=== PATIENT | female | born 1960 | race Caucasian/White ===

== ENCOUNTER 2022-09-24 10:27 | Outpatient (CLI) | payer BC, SELFPAY | END 2022-09-24 10:28 | disposition home or self-care (01) | PROVIDERS: PCP Family Medicine; Visit Provider Internal Medicine | DX: Z12.11 Encounter for screening for malignant neoplasm of colon (principal); K57.30 Diverticulosis of large intestine without perforation or abscess without bleeding; Z86.010 Personal history of colon polyps | CPT/HCPCS: 45378; J2250; J3010 ==

== ENCOUNTER 2024-01-17 21:58 | Emergency (ER) | payer BC, SELFPAY ==
[2024-01-17 22:02] VITALS: BP 177/75; PULSE 68; RESP 18; TEMP 36.4; O2SAT 97; BMI 30.7
--- NOTE | 2024-01-17 22:39 | ED_ITS ---
HPI - General Adult General Date Seen: 01/17/24 Chief complaint: Epistaxis/Nosebleed Stated complaint: nose bleed Time Seen by Provider: 01/17/24 22:39 History of Present Illness HPI narrative: This is a 63-year-old female presenting to the ER tonight for epistaxis. She is generally healthy with no known history of hypertension. No history of strokes, coronary disease, or other long-term medical conditions. She has been sick since yesterday with nasal congestion, cough and URI symptoms. She believe she picked up this cold from her mother who came to visit with a cold. This evening she was sneezing and started having some nose bleeding, mostly from her right nostril, at around 5:00 p.m.. She was able to control this nose bleed by dabbing at her nose with some Kleenex. She was picking up a heavy bucket of water at around 8:00 p.m. and started having nose bleed. During the 2nd bleeding blood was coming mostly from the right nostril but also from the left. She applied pressure with a nasal clamp and came to the ER. No previous history of nose bleeding. She also became very nervous. She started having a central headache. She measured her blood pressure knows elevated at about 177/100. She does not take any anticoagulants. No no nasal trauma. No other unusual bleeding or bruising. She does have a cough today that is productive of some dark yellow/greenish sputum. She wonders if this might be drainage from her nose. Now that she is here in the ER she has a nasal clamp in place and is no longer bleeding. Related Data Previous Rx's Medication Instructions Recorded peg 3350-electrolytes 236 240 ml PO Q10M #4,000 mL 08/02/22 gram-22.74 gram-6.74 gram-5.86 gram solution (Golytely) Allergies Allergy/AdvReac Type Severity Reaction Status Date / Time No Known Drug Allergies [facility] Ver[facility] 09[facility]24[facility]22 13:[facility] Social History Smoking Status: Never smoker Do you use any of these nicotine containing products: None Second hand tobacco smoke exposure: No How often do you have a drink containing alcohol: never AUDIT-C Alcohol total score: 0 Non-prescribed substance use: denies use service: No Exam Narrative: Exam Narrative: Constitutional: Appears well-developed and well-nourished. Alert. Conversant. Non toxic. HENT: Head: Atraumatic. Nose: External Nose normal. Dry blood in right naris. No active bleeding. After Afrin reinspected. There is a very small erythematous spot on the nasal septum about 1 cm in from the nares that may have been a recent site of bleeding. There is no active bleeding. Good hemostasis at this time. No other visible sites of epistaxis. Mouth/Throat: Oral mucosa is clear and moist. no trismus. Pharynx normal. Tonsils symmetric. No tonsillar enlargement, erythema, or exudate. Eyes: Conjunctivae normal. EOM normal. Pupils equal, round, and reactive to light. No scleral icterus. Neck: Normal range of motion. Neck supple. No tracheal deviation present. Cardiovascular: Normal rate, regular rhythm. No gallop. No friction rub. No murmur heard. Symmetric radial artery pulses Pulmonary/Chest: Effort normal. No stridor. No respiratory distress. No wheezes. No rales. No rhonchi . Musculoskeletal: RUE: Normal range of motion. No tenderness. No deformity LUE: Normal range of motion. No tenderness. No deformity RLE: Normal range of motion. No edema. No tenderness. No deformity LLE: Normal range of motion. No edema. No tenderness. No deformity Lymph: No cervical adenopathy. Neurological: Mental status normal. Attention normal. Alert and oriented x3. GCS 15. Memory normal. Speech fluent. Cognition normal. Cranial Nerves intact II-XII except I did not formally test gag or visual acuity. EOMI. Palate elevates symmetrically and tongue protrudes in the midline. Strength: 5/5 trapezius on the right and left 5/5 deltoid on the right and left 5/5 biceps on the right and left 5/5 triceps on the right and left 5/5 dictaphone operator on the right and left 5/5 thumb opposition on the right and le ft 5/5 finger abduction on the right and le ft 5/5 hip flexors (L3) on the right and le ft 5/5 quadriceps (L4) on the right and lef t 5/5 tibialis anterior on the right and l eft 5/5 EHL (L5) on the right and left 5/5 gastrocnemius (S1) on the right and left 5/5 hamstring on the right and left Sensation intact to light touch in both upper extremities (C4-T1) Sensation intact to light touch in Both lower extremities (L4-S1). Finger to nose and coordination normal. Gait normal. Skin: Skin is warm and dry. No rash noted. No pallor. Normal capillary refill. Psychiatric: Normal mood. Normal affect. Const: Vital Signs, click to edit/add: Vital Signs - 24 hr 01/17/24 22:02 01/18/24 00:12 Temperature 97.6 F Pulse Rate [Right Pulse Oximeter] 68 Respiratory Rate 18 Blood Pressure [Ri ght Upper Arm] 177/75 H 134/73 Pulse Oximetry 97 Oxygen Delivery Me thod Room Air Course Course ED Course: Recheck-no recurrent bleeding. Reevaluation(s) Reevaluation #1: Recheck-feeling much better after Afrin. Says she is able to breathe through her nose now. Headache improved after Tylenol. Repeat blood pressure down to 134/72. Feeling much better. Vital Signs Vital signs: Initial Vital Signs Temperature 97.6 F 01/17/24 22:02 Temperature Source Temporal Artery Scan 01/17/24 22:02 Pulse Rate 68 01/17/24 22:02 Pulse Rhythm Regular 01/17/24 22:02 Respiratory Rate 18 01/17/24 22:02 Blood Pressure 177/75 H 01/17/24 22:02 Blood Pressure Mean 109 H 01/17/24 22:02 Blood Pressure Position Sitting 01/17/24 22:02 Pulse Oximetry 97 01/17/24 22:02 Oxygen Delivery Method Room Air 01/17/24 22:02 Vital Signs Temperature 97.6 F 01/17/24 22:02 Pulse Rate 68 01/17/24 22:02 Respiratory Rate 18 01/17/24 22:02 Blood Pressure 177/75 H 01/17/24 22:02 Pulse Oximetry 97 01/17/24 22:02 Oxygen Delivery Method Room Air 01/17/24 22:02 Temperature 97.6 F 01/17/24 22:02 Pulse Rate 68 01/17/24 22:02 Respiratory Rate 18 01/17/24 22:02 Blood Pressure 134/73 01/18/24 00:12 Pulse Oximetry 97 01/17/24 22:02 Oxygen Delivery Method Room Air 01/17/24 22:02 Medications Administered Medications: Discontinued Medications Generic Name Dose Route Start Last Admin Trade Name Uliq PRN Reason Stop Dose Admin Acetaminophen 1,000 mg 01/17/24 22:56 01/17/24 23:09 Acetaminophen 500 Mg Tablet PO 01/17/24 22:57 1,000 mg ONCE ONE Administration Lidocaine HCl 6 ml 01/17/24 22:56 01/18/24 00:24 Lidocaine Hcl 2 % Jelly (Top) Sterile TOPICAL 01/17/24 22:57 Not Given ONCE ONE Lidocaine/Epinephrine 5 ml 01/17/24 22:56 01/18/24 00:24 Lidocaine 1%-Epi 1:100,000 20 Ml INFILTRATI 01/17/24 22:57 Not Given ONCE ONE Oxymetazoline HCl 1 spray 01/17/24 22:56 01/17/24 23:02 Oxymetazoline 0.05% Nasal [place] NOSTRIL-B 1 spray BID PRN Administration Silver Nitrate/Potassium Nitrate 1 each 01/17/24 22:56 01/18/24 00:24 Silver Nitrate Applicator 1 Each Stick..Ea. TOPICAL 01/17/24 22:57 Not Given ONCE ONE Medical Decision Making MDM Narrative Medical decision making narrative: This is a pleasant 63-year-old female presenting to the ER today with epistaxis from her right nose that began this evening as well a nasal congestion and cough that began yesterday as well as headache. She also noted elevated blood pressure readings at home tonight. With the nasal congestion and cough, consider likely viral URI. Nasopharyngeal PCR is negative for coronavirus, influenza, RSV. There is no signs at this point of serious bacterial infection such as OM, RPA, epiglottitis, SAUSAGE [employer], strep pharyngitis, pneumonia, sinusitis, meningitis, bacteremia, serious bacterial infection. Given clear lungs, fever curve, no hypoxia and no respiratory dis tress I do not feel a CXR is indicated at this point as the probability of bacterial pneumonia is very unlikely. Notably after we administered Afrin for the patient's nasal congestion she had significant improvement in her cough, suggesting that of large amount of the cough is probably driven by significant postnasal drip. There are no gastrointestinal symptoms at this point and no signs of dehydration. In terms of her epistaxis this was controlled by direct pressure with a nasal clamp. She is not anticoagulated or known to be coagulopathic. Hemodynamics are stable and, in fact hypertensive. At this point I do not think she needs to have hemoglobin check or to be admitted for hemoglobin monitoring. Fortunately we were able to achieve and maintain hemostasis with direct pressure. Therefore at this time would hold off on any cauterization or nasal packing. Discussed care for epistaxis at home, steps to take if she rebleeds, and return precautions. She was also very worried about her elevated blood pressure reading. She was worried she might have a stroke from her high blood pressure. Neuro exam shows no evidence for any active stroke at this time. Blood pressure actually normalized after treatment here in the ER suggesting the blood pressure was probably secondary to the stress and anxiety of the nose bleed and the other illness. At this point in only she needs initiation of antihypertensives. Close followup with primary care physician is indicated. Return to ED for recurrent nose bleed uncontrolled by direct pressure at home, fever , worsening cough or trouble breathing, confusion, headache, or other worsening. Lab Data Labs: Lab Results 01/17/24 Range/Units 23:02 SARS-CoV-2 (PCR) Negative SARS-CoV-2 (Negative) Influenza Type A (PCR) Negative PCR FLU A (Negative) Influenza Type B (PCR) Negative PCR FLU B (Negative) RSV (PCR) Negative PCR RSV (Negative) Discharge Plan Discharge Clinical Impression: Epistaxis, URI (upper respiratory infection) Patient Disposition: Home, Self-Care Condition: Stable Instructions: Nosebleed (ED), Upper Respiratory Infection (ED) Additional Instructions: As we discussed, if you have more episodes of nose bleeding, try to apply direct pressure for 10 minutes. If you have bleeding uncontrolled after that, come back to the ER right away to be rechecked. If you have any worsening trouble with your cough, trouble breathing, high fever, or any other problems, come back to the ER to be rechecked. Prescriptions: No Action peg 3350-electrolytes [Golytely] 236-22.74-6.74 -5.86 gram recon soln 240 ml PO Q10M Qty: 4000 0RF Rx Instructions: until fecal effluent is clear Follow Up/Referrals: Kiley Miramontes MD [Primary Care Provider] - Stand Alone Forms: [employer] Info Instructions
[2024-01-17] MEDS: OXYMETAZOLINE 0.05% NASAL SPRAY 1 SPRAY NOSTRIL-B (23:02)
[2024-01-17] MEDS: ACETAMINOPHEN 500 MG TABLET 1000 MG PO (23:09)
[2024-01-17 23:52] LABS: PCR FLU A Negative PCR FLU A (Negative); PCR FLU B Negative PCR FLU B (Negative); PCR RSV Negative PCR RSV (Negative); SARS PCR* Negative SARS-CoV-2 (Negative)
[2024-01-18 00:12] VITALS: BP 134/73
== END 2024-01-18 00:16 | disposition home or self-care (01) ==
PROVIDERS: Emergency Provider Emergency Medicine; PCP Family Medicine
DX: R04.0 Epistaxis (principal); J06.9 Acute upper respiratory infection, unspecified
CPT/HCPCS: 30901; 87631; 99283; A9270

== ENCOUNTER 2025-01-17 09:42 | Outpatient (CLI) | payer BC, SELFPAY ==
--- NOTE | 2025-01-17 10:15 | CRLHL7_ITS ---
For Patients: As a result of the Century Cures Act, medical imaging exams and procedure reports are released immediately into your electronic medical record. You may view this report before your referring provider. If you have questions, please contact your health care provider. INDICATION: BILATERAL SCREENING MAMMOGRAM, ASYMPTOMATIC 64 Y/O FEMALE COMPARISON: 03/21/2019, 03/15/2018, 09/11/2012 TECHNIQUE: Digital mammogram in CC and MLO projections including computer-aided detection (CAD) and tomosynthesis. BREAST COMPOSITION: There are scattered areas of fibroglandular density. FINDINGS: No suspicious findings. ASSESSMENT: BI-RADS 1 Negative RECOMMENDATION: Annual screening mammogram. A lay language report of this examination will be provided to the patient. Dictated by: Chandra Batista MD @ 01/17/2025 10:34:47 (Electronically Signed)
== END 2025-01-17 09:43 | disposition home or self-care (01) ==
LOC: MAMMO 09:44
PROVIDERS: PCP Family Medicine; Visit Provider Family Medicine
DX: Z12.31 Encounter for screening mammogram for malignant neoplasm of breast (principal)
CPT/HCPCS: 77063; 77067

== ENCOUNTER 2025-06-24 10:12 | Outpatient (CLI) | payer BC, SELFPAY | END 2025-06-24 10:13 | disposition home or self-care (01) | LOC: NFLDREF 06-26 10:56 | PROVIDERS: Referring Provider Family Medicine; Visit Provider Physician Assistant Medical | DX: Z13.9 Encounter for screening, unspecified (principal); Z13.6 Encounter for screening for cardiovascular disorders | CPT/HCPCS: 80053; 80061 ==

== ENCOUNTER 2025-06-27 14:11 | Outpatient (CLI) | payer BC, SELFPAY ==
[2025-06-27 23:23] LABS: Chlamydia DNA Amplified* NOT DETECTED (No Detected); GC DNA Amplified* NOT DETECTED (No Detected)
[2025-06-29 20:03] LABS: HPV Source Cervix
[2025-07-03 08:53] LABS: Pap Test Digital Imaging Done
== END 2025-06-27 14:12 | disposition home or self-care (01) ==
PROVIDERS: Visit Provider Physician Assistant Medical
DX: Z00.00 Encounter for general adult medical examination without abnormal findings (principal)
CPT/HCPCS: 87491; 87591; 87624; 87625; 88141; 88142; 88175

== ENCOUNTER 2025-07-01 14:40 | Outpatient (CLI) | payer BC, SELFPAY ==
--- NOTE | 2025-07-01 14:45 | CRLHL7_ITS ---
For Patients: As a result of the Century Cures Act, medical imaging exams and procedure reports are released immediately into your electronic medical record. You may view this report before your referring provider. If you have questions, please contact your health care provider. INDICATION: pain/swelling left leg, multiple varicose veins COMPARISON: None. TECHNIQUE: A compression venous ultrasound exam was performed of the left lower extremity using donnelly-scale imaging, color Doppler and spectral Doppler analysis. FINDINGS: Sonographic imaging of the left lower extremity demonstrates normal compressibility and color Doppler venous blood flow within the common femoral vein, deep femoral vein, and the proximal greater saphenous vein. Within the thigh, the femoral vein is patent and compressible. At a lower level, the popliteal and posterior tibial veins also show normal compressibility and color Doppler venous blood flow. Limited imaging of the contralateral groin demonstrates a normal spectral waveform and color Doppler venous blood flow within the right common femoral vein. IMPRESSION: Normal venous ultrasound exam. No evidence of deep vein thrombosis within the left lower extremity. Dictated by Chandra Batista MD @ 07/01/2025 3:37:19 PM (Electronically Signed)
--- NOTE | 2025-07-01 16:00 | CRLHL7_ITS ---
For Patients: As a result of the Century Cures Act, medical imaging exams and procedure reports are released immediately into your electronic medical record. You may view this report before your referring provider. If you have questions, please contact your health care provider. INDICATION: Lung cancer screening. History of smoking. High risk patient with greater than 20 pack-year smoking history. TECHNIQUE: Low-dose lung cancer screening non-contrast CT chest. Dose reduction techniques were used. COMPARISON: None. FINDINGS: NODULES: 2 millimeter nodule left upper lobe, /34. 4 millimeter nodule within the lingula, . Additional 4 millimeter nodule within the lingula, 86. 3 millimeter nodule left lower lobe, 115. Additional smaller 1-2 millimeter nodules are present elsewhere. Curvilinear nodular density within the right middle lobe, . Ill-defined nodule within the right middle lobe measures 5 millimeters, . LUNGS AND PLEURA: Emphysema. MEDIASTINUM: No adenopathy. CORONARY ARTERY CALCIFICATION: None. LIMITED UPPER ABDOMEN: Normal. MUSCULOSKELETAL: Normal. IMPRESSION: Multiple small bilateral nodules measuring less than 6 millimeters. LUNG-RADS CATEGORY: 2: Benign. RADIOLOGIST RECOMMENDATION: Continue annual screening, if eligible, with low-dose CT chest in 12 months. Please note that all CT scans at this facility use dose modulation, iterative reconstruction, and/or weight-based dosing when appropriate to reduce radiation dose to as low as reasonably achievable. Dictated by Chandra Batista MD @ 07/01/2025 3:53:11 PM (Electronically Signed)
== END 2025-07-01 14:41 | disposition home or self-care (01) ==
LOC: US 14:40
PROVIDERS: Visit Provider Physician Assistant Medical
DX: M79.605 Pain in left leg (principal); I83.813 Varicose veins of bilateral lower extremities with pain; M79.89 Other specified soft tissue disorders
CPT/HCPCS: 71271; 93971